=== PATIENT | male | born 1945 | race Two or more races ===

== ENCOUNTER 2023-06-08 10:17 | Inpatient (IN) | payer OTHER ==
[~2023-06-08] VITALS: Ht 152.4 cm; Wt 62.1 kg
[2023-06-08] MEDS ORDERED: EZALLOR SPRINKL20 MG PO (11:11)
[2023-06-08] MEDS ORDERED: GLUMETZA1000 MG PO (11:11)
[2023-06-08] MEDS ORDERED: ECOTRIN81 MG PO (11:12)
[2023-06-08] MEDS ORDERED: DONEPEZIL HCL O10 MG PO (11:12)
[2023-06-08] MEDS ORDERED: AMLODIPINE BESYL5 MG PO (11:12)
[2023-06-08] MEDS ORDERED: [UNRECOGNIZED DRUG - OTHER] (11:13)
[2023-06-08] MEDS ORDERED: MYRBETRIQ25 MG PO (11:14)
[2023-06-08 12:16] LABS: HEMATOCRIT 33.9 % (39.0-48.0); HEMOGLOBIN 11.4 g/dL (13-16.00); MEAN CELL VOLUME 85.8 fL (80.0-100.00); MEAN CORPUSCULAR HEMOGLOBIN 28.8 pg (27.00-32.0); MEAN CORPUSCULAR HGB CONC 33.6 g/dl (32.0-36.0); PLATELET COUNT 303 K/uL (150-450); RED BLOOD COUNT 3.95 M/uL (4.00-6.00); RED CELL DISTRIBUTION WIDTH 14.2 % (11.5-14.5)
[2023-06-08 14:18] LABS: URINE APPEARANCE Cloudy; URINE BILIRRUBIN Negative (NEGATIVE); URINE BLOOD Moderate; URINE COLOR Yellow; URINE GLUCOSE Negative (NEGATIVE); URINE LEUKOCYTE Moderate; URINE NITRATE Negative
[2023-06-08 14:24] LABS: URINE BACTERIA 75.5 uL (0.0-1933); URINE EPITHELIAL CELLS 11.2 uL (0.0-38.8); URINE RBC 38.6 uL (0.0-20.8); URINE WBC 518.5 uL (0.0-23.2)
[2023-06-08 14:25] LABS: URINE PROTEIN 100 (NEGATIVE)
[2023-06-08 17:22] LABS: ALBUMIN 3.6 gm/dL (3.4-5.0); BILIRUBIN TOTAL 0.63 mg/dL (0.3-1.2); CALCIUM 9.5 mg/dL (8.5-10.1); CREATININE SERUM 2.12 mg/dL (0.70-1.30); GFR 30.36; GLOBULINA 4.9 G/DL (2.4-3.5); POTASSIUM 4.63 mEq/L (3.5-5.1); TOTAL PROTEIN 8.5 gm/dL (6.4-8.2)
[2023-06-08 17:24] LABS: C-REACTIVE PROTEIN 25.7 MG/DL (0.00-0.29)
[2023-06-08 20:43] LABS: D DIMER 2.58 MG/L; INR 1.09; PARTIAL THROMBOPLASTIN TIME 33.3 SECONDS (22.0-34.0); PROTHROMBIN TIME 11.4 SECONDS (9.0-11.5)
[2023-06-08 20:46] LABS: MAGNESIUM 2.1 mg/dL (1.8-2.4)
[2023-06-09 10:09] LABS: ABG PH 7.474 (7.35-7.45); ABG PO2 71.6 mmHg (80-100); ABG pCO2 28.8 mmHg (35-45); BASE EXCESS -1.6 mmol/l; BICARBONATE 20.6 mmol/l (23-25); SaO2 95.3 %; Tco2 21.5 mmol/l; allen test SATISFACTORY; puncture site RADIAL RIGHT
[2023-06-09 10:10] LABS: o2 21 %
[2023-06-10 08:14] LABS: URINE APPEARANCE Clear; URINE BILIRRUBIN Negative (NEGATIVE); URINE BLOOD Small; URINE COLOR Yellow; URINE GLUCOSE Negative (NEGATIVE); URINE LEUKOCYTE Large; URINE NITRATE Negative; URINE PROTEIN Trace (NEGATIVE); URINE UROBILINOGEN 0.2 E.U./dl
[2023-06-10 08:19] LABS: URINE BACTERIA 245.6 uL (0.0-1933); URINE EPITHELIAL CELLS 2.4 uL (0.0-38.8); URINE RBC 7.9 uL (0.0-20.8)
[2023-06-10 08:26] LABS: HEMATOCRIT 26.8 % (39.0-48.0); MEAN CELL VOLUME 84.5 fL (80.0-100.00); MEAN CORPUSCULAR HGB CONC 34.3 g/dl (32.0-36.0); PLATELET COUNT 247 K/uL (150-450); RED BLOOD COUNT 3.17 M/uL (4.00-6.00)
[2023-06-10 08:47] LABS: HEMOGLOBIN 9.2 g/dL (13-16.00)
[2023-06-10 08:50] LABS: ALBUMIN 2.6 gm/dL (3.4-5.0); BILIRUBIN TOTAL 0.35 mg/dL (0.3-1.2); CALCIUM 8.6 mg/dL (8.5-10.1); CREATININE SERUM 1.99 mg/dL (0.70-1.30); GFR 32.66; PHOSPHOROUS 3.3 mg/dL (2.5-4.9); POTASSIUM 4.14 mEq/L (3.5-5.1); TOTAL PROTEIN 5.6 gm/dL (6.4-8.2)
[2023-06-10 08:51] LABS: C-REACTIVE PROTEIN 16.2 MG/DL (0.00-0.29); PROSTATIC SPECIFIC ANTIGEN 6.26 NG/ML (0.010-4.00)
== END 2023-06-11 11:15 | disposition home or self-care (01) | DRG 872 ==
LOC: ER 10:18 → MEDI 19:47 → MEDJ 19:47 → MEDI 19:54
PROVIDERS: Emergency Medicine; General Practice; Internal Medicine Infectious Disease; ADMIT Internal Medicine; ATTEND Internal Medicine
DX: A41.9 Sepsis, unspecified organism (principal); N17.9 Acute kidney failure, unspecified; N39.0 Urinary tract infection, site not specified; N45.1 Epididymitis; N45.2 Orchitis; Z20.822 Contact with and (suspected) exposure to COVID-19; I10 Essential (primary) hypertension; E78.5 Hyperlipidemia, unspecified; E11.9 Type 2 diabetes mellitus without complications; Z79.4 Long term (current) use of insulin